=== PATIENT | female | born 1980 | race American Indian/Alaskan Native ===

== ENCOUNTER 2018-11-02 23:47 | Inpatient (IN) | payer MEDICAID ==
[2018-11-03] MEDS ORDERED: Morphine 4 mg/ml ISec IVP STA (00:40)
[2018-11-03] MEDS ORDERED: Sodium Chloride 0.9% 1,000 ML IV STA (00:41)
--- NOTE | 2018-11-03 00:41 | ED PDOC ---
Arrival/HPI - General Historian: Patient - History of Present Illness Narrative History of Present Illness (Text): 11/03/18 00:41 37 year old female, with no significant past medical history, who presents to the emergency department complaining of left leg pain that radiates to her left hip onset 4am yesterday. Patient reports she went to [facility] [place], where an ultrasound was done with no significant results. Patient reports inability to walk when pain is severe. She reports taking Aproxin with no improvement, prompting her to visit the ER today. similar symptoms 4 moths ago. She denies any fever, vomiting, nausea, chest pain, abdominal pain, urinary symptoms, bowel incontinence, or any other somatic complaints. PMD: Dr. Viramontes Time/Duration: 24 hours Symptom Onset: Gradual Symptom Course: Unchanged Activities at Onset: Light Context: Home <Sherlyn Arnold PA-C - Last Filed: 11/03/18 01:58> <Mohinder Romo - Last Filed: 11/03/18 05:55> - General Chief Complaint: Lower Extremity Problem/Injury Time Seen by Provider: 11/02/18 23:54 Past Medical History - Provider Review Nursing Documentation Reviewed: Yes - Infectious Disease Hx of Infectious Diseases: None - Cardiac Hx Cardiac Disorders: Yes Hx Hypertension: Yes - Pulmonary Hx Respiratory Disorders: Yes Hx Asthma: Yes - Neurological Hx Neurological Disorder: No - HEENT Hx HEENT Disorder: No - Renal Hx Renal Disorder: No - Endocrine/Metabolic Hx Endocrine Disorders: No - Hematological/Oncological Hx Blood Disorders: No - Integumentary Hx Dermatological Disorder: No - Musculoskeletal/Rheumatological Hx Musculoskeletal Disorders: Yes Other/Comment: lt hip replacement - Gastrointestinal Hx Gastrointestinal Disorders: No - Genitourinary/Gynecological Hx Genitourinary Disorders: No - Psychiatric Hx Psychophysiologic Disorder: No Hx Substance Use: No - Surgical History Hx Open Reduction Internal Fixation: Yes (hip) - Anesthesia Hx Anesthesia: Yes Hx Anesthesia Reactions: No Hx Malignant Hyperthermia: No <Sherlyn Arnold PA-C - Last Filed: 11/03/18 01:58> Family/Social History - Physician Review Nursing Documentation Reviewed: Yes Family/Social History: Unknown Family HX Smoking Status: Heavy Smoker > 10 Cigarettes Daily Hx Alcohol Use: Yes Frequency of alcohol use: Socially Hx Substance Use: No <Sherlyn Arnold PA-C - Last Filed: 11/03/18 01:58> Allergies/Home Meds <Sherlyn Arnold PA-C - Last Filed: 11/03/18 01:58> <Mohinder Romo - Last Filed: 11/03/18 05:55> Allergies/Adverse Reactions: Allergies No Known Allergies Allergy (Verified 11/03/18 00:39) Review of Systems - Physician Review All systems were reviewed & negative as marked: Yes - Review of Systems Constitutional: absent: Fevers Cardiovascular: absent: Chest Pain Gastrointestinal: absent: Abdominal Pain Genitourinary Female: absent: Urine Output Changes Musculoskeletal: absent: Back Pain, Neck Pain Neurological: absent: Headache <Sherlyn Arnold PA-C - Last Filed: 11/03/18 01:58> Physical Exam Vital Signs Reviewed: Yes Vital Signs Temp Pulse Resp BP Pulse Ox 11/03/18 00:18 98.1 F 73 13 146/85 97 Temperature: Afebrile Blood Pressure: Normal Pulse: Regular Respiratory Rate: Normal Appearance: Positive for: Well-Appearing, Non-Toxic, Comfortable Pain Distress: Mild Mental Status: Positive for: Alert and Oriented X 3 - Systems Exam Head: Present: Atraumatic, Normocephalic Pupils: Present: PERRL Extroacular Muscles: Present: EOMI Conjunctiva: Present: Normal Mouth: Present: Moist Mucous Membranes Neck: Present: Normal Range of Motion Respiratory/Chest: Present: Clear to Auscultation, Good Air Exchange. No: Respiratory Distress, Accessory Muscle Use Cardiovascular: Present: Regular Rate and Rhythm, Normal S1, S2. No: Murmurs Abdomen: No: Tenderness, Distention, Peritoneal Signs Back: Present: Normal Inspection Upper Extremity: Present: Normal Inspection. No: Cyanosis, Edema Lower Extremity: Present: Normal Inspection, Tenderness (Tenderness to left hip , posterior aspect of left knee). No: Edema Neurological: Present: GCS=15, Speech Normal Skin: Present: Warm, Dry, Normal Color. No: Rashes Psychiatric: Present: Alert, Oriented x 3, Normal Insight, Normal Concentration <Sherlyn Arnold PA-C - Last Filed: 11/03/18 01:58> Vital Signs Temp Pulse Resp BP Pulse Ox 11/03/18 00:18 98.1 F 73 13 146/85 97 <Mohinder Romo - Last Filed: 11/03/18 05:55> Medical Decision Making ED Course and Treatment: 11/03/18 00:39 Impression: 37 year old female presents to the emergency department complaining of pain in left leg and hip onset 4am yesterday. Differential Diagnosis included but are not limited to: Plan: -- EKG -- Labs -- Morphine -- Valium -- Zofran -- X-ray left knee -- X-ray Hip -- Ultrasund lower extremity -- Reassess and disposition Prior Visits: Notes and results from previous visits were reviewed. Progress Notes: <Sherlyn Arnold PA-C - Last Filed: 11/03/18 01:58> ED Course and Treatment: 11/03/18 04:40 Venous doppler U/S LL Extremity- No DVT 11/03/18 05:24 X-ray left knee, X-ray Hip reviewed, shows: No acute processes. 11/03/18 05:50 Attempt at having patient ambulate unsuccessful.Still complains of persistent symptoms/pain and locking sensation when attempt made/Will place on observation,hospitalist service/orthopedic consult needed/Case was discussed w whit Coleman and biomedical engineering aide.Accepted to the hospitalist jackelyn. - RAD Interpretation Radiology Orders: 11/03/18 00:40 HIP MIN 2V W/ PELVIS LT [RAD] Stat KNEE LEFT 2 VIEWS (AP & LAT) [RAD] Stat DUPLEX LOWER EXTRM VEIN LEFT [US] Stat [employer] Apprentice: ED Physician - Medication Orders Current Medication Orders: Sodium Chloride (Sodium Chloride 0.9%) 1,000 mls @ 500 mls/hr IV .Q2H STA Stop: 11/03/18 02:40 Discontinued Medications Diazepam (Valium) 5 mg PO ONCE ONE; Protocol Stop: 11/03/18 00:43 Last Admin: 11/03/18 01:15 Dose: 5 mg Morphine Sulfate (Morphine) 4 mg IVP STAT STA Stop: 11/03/18 00:41 Ondansetron HCl (Zofran Inj) 4 mg IVP STAT STA Stop: 11/03/18 00:41 <Mohinder Romo - Last Filed: 11/03/18 05:55> - PA / TEMPORARY RECEPTIONIST / Resident Statement TYLOR has reviewed & agrees with the documentation as recorded. TYLOR has examined the patient and agrees with the treatment plan. - Scribe Statement The provider has reviewed the documentation as recorded by the Carli Red All medical record entries made by the Carli were at my direction and personally dictated by me. I have reviewed the chart and agree that the record accurately reflects my personal performance of the history, physical exam, medical decision making, and the department course for this patient. I have also personally directed, reviewed, and agree with the discharge instructions and disposition. <Sherlyn Arnold PA-C - Last Filed: 11/03/18 01:58> - PA / TEMPORARY RECEPTIONIST / Resident Statement TYLOR has reviewed & agrees with the documentation as recorded. <Mohinder Romo - Last Filed: 11/03/18 05:55> Disposition/Present on Arrival - Present on Arrival History of DVT/PE: No History of Uncontrolled Diabetes: No Urinary Catheter: No History of Decub. Ulcer: No History Surgical Site Infection Following: None <Sherlyn Arnold PA-C - Last Filed: 11/03/18 01:58> - Present on Arrival Any Indicators Present on Arrival: No History of DVT/PE: No History of Uncontrolled Diabetes: No Urinary Catheter: No History of Decub. Ulcer: No History Surgical Site Infection Following: None - Disposition Have Diagnosis and Disposition been Completed?: Yes Disposition Time: 05:48 <Mohinder Romo - Last Filed: 11/03/18 05:55> - Disposition Diagnosis: Hip pain, left, Intractable pain, Inability to ambulate due to hip Disposition: HOSPITALIZED Patient Problems: Current Active Problems Problem Status Onset Hip pain, left Acute Inability to ambulate due to hip Acute Intractable pain Acute Condition: STABLE Referrals: Anton Viramontes MD [Primary Care Provider] - Follow up with primary Forms: Gridsum (Chinese)
[2018-11-03 01:35] LABS: BASO # 0.04 K/mm3 (0.0-2.0); BASO % 0.3 % (0.0-3.0); EOS # 0.2 (0.0-0.7); EOS % 1.5 % (1.5-5.0); HEMOGLOBIN 12.5 g/dL (12.0-16.0); LYMPH # 1.8 (1.2-3.4); MEAN CELL VOLUME 77.9 fl (80.0-105.0); MEAN CORPUSCULAR HEMOGLOBIN 26.3 pg (25.0-35.0); MEAN CORPUSCULAR HGB CONC 33.7 g/dl (31.0-37.0); MEAN PLATELET VOLUME 8.8 fl (7.0-11.0); MONO # 0.4 (0.1-0.6); MONO % 2.9 % (1.0-6.0); RBC 4.76 10^6/uL (3.5-6.1); RED CELL DISTRIBUTION WIDTH 16.1 % (11.5-14.5); WHITE BLOOD COUNT 13.5 10^3/uL (4.5-11.0)
[2018-11-03 02:27] LABS: ALBUMIN 3.5 g/dL (3.0-4.8); BLOOD UREA NITROGEN 14 mg/dL (7-21); CALCIUM 8.1 mg/dL (8.4-10.5); GFR NON-AFRICAN AMERICAN > 60
[2018-11-03 03:02] LABS: ALT/SGPT 11 U/L (7-56); AST/SGOT 35 U/L (14-36)
[2018-11-03 07:57] VITALS: BMI 41.0
--- NOTE | 2018-11-03 09:10 | CP.PCM.HP ---
<Brant Cassidy - Last Filed: 11/03/18 13:26> History of Present Illness - History of Present Illness History of Present Illness: Brant Cassidy DO, PGY-1 Hospitalist Admission History and Physical for Dr. 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 She describes the pain as a squeezing, tingling type sensation that starts at her L hip and radiates down her entire posterior leg to her foot. She rates the pain as 10/10 with movement. She states she has tried naproxen for the pain but had no improvement. She denies recent strenuous activity or other inciting events. She was worked up with xrays and LLE doppler US in ED which were all negative for concerning findings. In ED, patient attempted to ambulate on four different occasions but was unable to. Aside from the L hip pain, she denies fever/chills, CP, SOB, abd pain/nausea/vomiting, ALARCON, changes in vision, or urinary complaints. 12-point ROS was otherwise negative except as specified above. PMD: Dr. 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 and L SHARDA in early 20s), HTN (not on meds), and asthma Past Surgical History: b/l hip screw placement for probable SCFE at age 12, Allergies: NKA Home medications: albuterol inhaler PRN Family History: mother and father both still living, father has HTN, mother has PAD Social History: admits to light smoking less than 1/2 PPD for the past 10 years, reports occasional EtOH use, denies other illicit drug use Present on Admission - Present on Admission Any Indicators Present on Admission: No History of DVT/PE: No History of Uncontrolled Diabetes: No Urinary Catheter: No Decubitus Ulcer Present: No Past Patient History - Infectious Disease Hx of Infectious Diseases: None - Past Social History Smoking Status: Never Smoked - CARDIAC Hx Cardiac Disorders: Yes Hx Hypertension: Yes - PULMONARY Hx Respiratory Disorders: Yes Hx Asthma: Yes - NEUROLOGICAL Hx Neurological Disorder: No - HEENT Hx HEENT Problems: No - RENAL Hx Chronic Kidney Disease: No - ENDOCRINE/METABOLIC Hx Endocrine Disorders: No - HEMATOLOGICAL/ONCOLOGICAL Hx Blood Disorders: No - INTEGUMENTARY Hx Dermatological Problems: No - MUSCULOSKELETAL/RHEUMATOLOGICAL Hx Musculoskeletal Disorders: Yes Hx Falls: Yes Other/Comment: lt hip replacement - GASTROINTESTINAL Hx Gastrointestinal Disorders: No - GENITOURINARY/GYNECOLOGICAL Hx Genitourinary Disorders: No - PSYCHIATRIC Hx Psychophysiologic Disorder: No - SURGICAL HISTORY Hx Surgeries: Yes - ANESTHESIA Hx Anesthesia: Yes Hx Anesthesia Reactions: No Hx Malignant Hyperthermia: No Meds Allergies/Adverse Reactions: Allergies Allergy/AdvReac Type Severity Reaction Status Date / Time No Known Allergies Allergy Verified 11/03/18 00:39 Physical Exam - Constitutional Appears: Non-toxic, No Acute Distress, Other (resting comfortably in bed, no acute respiratory distress, but appears uncomfortable and in significant pain with even slight movement) - Head Exam Head Exam: ATRAUMATIC, NORMOCEPHALIC - Eye Exam Eye Exam: EOMI, PERRL - ENT Exam ENT Exam: Mucous Membranes Moist - Neck Exam Neck exam: Positive for: Full Rom. Negative for: Lymphadenopathy, Thyromegaly - Respiratory Exam Respiratory Exam: Clear to Auscultation Bilateral, NORMAL BREATHING PATTERN. absent: Accessory Muscle Use, Rales, Rhonchi, Wheezes, Respiratory Distress - Cardiovascular Exam Cardiovascular Exam: REGULAR RHYTHM, RRR, +S1, +S2. absent: Diastolic murmur, Gallop, Rubs, Systolic Murmur - GI/Abdominal Exam GI & Abdominal Exam: Normal Bowel Sounds, Soft. absent: Guarding, Rebound, Tenderness - Extremities Exam Extremities exam: Positive for: tenderness (L hamstring and L hip tenderness). Negative for: calf tenderness, pedal edema Additional comments: positive straight leg test on R, significant tenderness to palpation over L hip, no calf tenderness to palpation - Back Exam Back exam: absent: paraspinal tenderness, rash noted, vertebral tenderness - Neurological Exam Neurological exam: Alert, Oriented x3 - Psychiatric Exam Psychiatric exam: Normal Affect, Normal Mood - Skin Skin Exam: Dry, Intact, Warm Results - Vital Signs Recent Vital Signs: Last Vital Signs Temp 98.2 F 11/03/18 08:46 Pulse 53 L 11/03/18 08:46 Resp 18 11/03/18 08:46 BP 165/80 H 11/03/18 08:46 Pulse Ox 96 11/03/18 08:46 - Labs Result Diagrams: 11/03/18 01:22 11/03/18 01:55 Labs: Laboratory Results - last 24 hr 11/03/18 11/03/18 11/03/18 01:22 01:22 01:55 WBC 13.5 H RBC 4.76 Hgb 12.5 Hct 37.1 MCV 77.9 L MCH 26.3 MCHC 33.7 RDW 16.1 H Plt Count 286 MPV 8.8 Neut % (Auto) 82.3 H Lymph % (Auto) 13.0 L Smyth % (Auto) 2.9 Eos % (Auto) 1.5 Baso % (Auto) 0.3 Lymph # (Auto) 1.8 Smyth # (Auto) 0.4 Eos # (Auto) 0.2 Baso # (Auto) 0.04 Absolute Neuts (auto) 11.07 H Sodium 139 Potassium 4.3 Chloride 105 Carbon Dioxide 28 Anion Gap 10 BUN 14 Creatinine 0.7 Est GFR ( Amer) > 60 Est GFR (Non-Af Amer) > 60 Random Glucose 114 H Calcium 8.1 L Magnesium 2.1 Total Bilirubin 0.3 AST 35 ALT 11 Alkaline Phosphatase 71 Total Protein 7.1 Albumin 3.5 Globulin 3.6 Albumin/Globulin Ratio 1.0 L Beta HCG, Quant < 2.39 Assessment & Plan - Assessment and Plan (Free Text) Assessment: 37 yo F with PMH of 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 Plan: L Hip Pain Suspect pain is most likely related to sciatica, given radiation to LLE, however patient denies any back pain Will get CT L hip and CT lumbosacral spine Given patient's history of L SHARDA, will consult ortho for additional recs Flexeril 5 mg q8h and motrin PRN for pain PT evaluate and treat Appropriate DVT ppx ordered Asthma Patient currently not complaining of any SOB Only uses albuterol inhaler PRN Order placed for duo-neb PRN SOB HTN Patient admits to hx of HTN but is not currently on any meds Will monitor BP throughout admission, recommend outpatient f/u if hypertensive DVT/GI PPX: Lovenox/GI ppx not indicated Full Code HHD Monitor on med/surg Patient seen, examined with, and plan discussed with my attending Dr. Jeff Cassidy D.O. IM Resident PGY-1 Pager: [phone] <Radha Avalos R - Last Filed: 11/04/18 18:27> Results - Vital Signs Recent Vital Signs: Last Vital Signs Temp 98.0 F 11/04/18 06:00 Pulse 62 11/04/18 06:00 Resp 18 11/04/18 06:00 BP 129/84 11/04/18 06:00 Pulse Ox 97 11/04/18 06:00 - Labs Result Diagrams: 11/04/18 06:10 11/04/18 06:10 Labs: Laboratory Results - last 24 hr 11/04/18 11/04/18 06:10 06:10 WBC 12.6 H RBC 4.26 Hgb 11.2 L Hct 33.6 L MCV 78.9 L MCH 26.3 MCHC 33.3 RDW 16.6 H Plt Count 259 MPV 9.1 Neut % (Auto) 54.8 Lymph % (Auto) 35.2 H Smyth % (Auto) 6.5 H Eos % (Auto) 2.9 Baso % (Auto) 0.6 Lymph # (Auto) 4.4 H Smyth # (Auto) 0.8 H Eos # (Auto) 0.4 Baso # (Auto) 0.07 Absolute Neuts (auto) 6.87 H Sodium 139 Potassium 4.4 Chloride 107 Carbon Dioxide 31 Anion Gap 6 L BUN 16 Creatinine 0.9 Est GFR ( Amer) > 60 Est GFR (Non-Af Amer) > 60 Random Glucose 95 Calcium 7.9 L Phosphorus 3.9 Magnesium 2.0 Total Bilirubin 0.1 L AST 35 ALT 14 Alkaline Phosphatase 62 Total Protein 6.0 Albumin 3.0 Globulin 3.0 Albumin/Globulin Ratio 1.0 L Attending/Attestation - Attestation I have personally seen and examined this patient.: Yes I have fully participated in the care of the patient.: Yes Notes (Text): Patient seen and examined by me with resident at approximately 11:20AM on 11/03/18. Case including HPI, physical exam, and assessment and plan discussed with resident. Agree with above with following additions/corrections. Patient is a 37-year-old female with past medical history significant for likely bilateral SCFE, hypertension not any medications, and mild intermittent asthma that presented to the emergency room with intractable left lower extremity pain. Patient states that this has been going on for approximately 7 months. She states that initially the pain would comment and was not as severe. She states that she normally walks around a lot and works as a [employer]. She states that she was taking mobic at home for the pain with little relief. She states that the severe pain started around 4 AM. She states that the pain is a squeezing pain. There is also tingling and numbness. Pain starts at the back of her thigh and goes down to her foot. Patient states that she is unable to walk without pain. She denies any falls. No trauma to the area. No back pain. Feels that the pain is coming from her left hip replacement. She denies any chest pain or shortness of breath. No fevers or chills. No nausea, vomiting, or abdominal pain. No headaches or dizziness. No dysuria. No diarrhea or constipation. No loss of bowel or urine. 12 point review of systems reviewed by me. Please see above HPI. All other systems negative. Physical exam: General: Awake and alert lying in bed in no acute distress HEENT: Normocephalic, atraumatic. Extraocular muscles intact. Pupils equal and reactive, no scleral icterus. Oropharynx is pink and moist. No pharyngeal erythema or exudate appreciated. Neck is supple. Cardiovascular: Normal rhythm. Normal S1 and S2. No murmus, rubs, or gallops appreciated Pulmonary: Normal respiratory effort. No rhonci, rales, or wheezing appreciated. Gastrointestinal: Soft, nondistended. Nontender. Positive bowel sounds all 4 quadrants. No guarding. Obese abdomen. Musculoskeletal: Moves all extremities. Positive decreased range of motion of entire left leg. Positive posterior leg tenderness. No lumbosacral spine tenderness. No edema appreciated. Central nervous system: AAO x3. CN2-12 grossly intact. Decreased sensation left lower extremity Dermatologic: Skin warm and dry. 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 1. Intractable left leg/hip pain. Left lower extremitty radiculopathy. We'll order CT of left hip and lumbosacral spine. Orthopedics consulted, pending recommendations. Left pelvis and hip x-ray per radiologist shows no acute findings. Left knee x-ray per radiologist shows normal radiographs of the left knee. Left lower extremity venous Doppler per radiologist negative for DVT. PT eval and treat. Started on Flexeril as needed. 2. History of hypertension. Not on any medications at home. We'll monitor for now. 3. Mild intermittent asthma. No acute issues. Monitor for now. Case was discussed in detail with the patient regarding current diagnosis, study results, and treatment plan. All questions answered.
--- NOTE | 2018-11-03 09:34 | RAD ---
Date of service: 11/03/2018 PROCEDURE: Left Knee Radiographs. HISTORY: Pain. COMPARISON: None. TECHNIQUE: 2 views obtained. FINDINGS: BONES: Normal. No fracture. JOINTS: Normal. No osteoarthritis. JOINT EFFUSION: None. OTHER FINDINGS: None. IMPRESSION: Normal radiographs of the left knee.
--- NOTE | 2018-11-03 09:35 | RAD ---
Date of service: 11/03/2018 PROCEDURE: Pelvis and left hip HISTORY: pain COMPARISON: TECHNIQUE: Three views FINDINGS: There is a left hip prosthesis in satisfactory alignment. There is no fracture or loosening. A single screw can be seen through the right hip. There is mild joint space narrowing. The pelvis is intact IMPRESSION: No acute findings
--- NOTE | 2018-11-03 09:51 | US ---
PROCEDURE: Left lower extremity venous US HISTORY: Leg pain and swelling. Evaluate for DVT. PHYSICIAN(S): Denis Diop MD. TECHNIQUE: Duplex sonography and color-flow Doppler with graded compression were used to evaluate the deep venous system of the left lower extremity. FINDINGS: The visualized deep venous system of the left lower extremity is sonographically normal and compressible. Normal wave forms and augmentation are seen. There is no sonographic evidence for deep venous thrombosis in the visualized segments of the left lower extremity. IMPRESSION: 1. No sonographic evidence for deep venous thrombosis in the visualized segments of the left lower extremity.
--- NOTE | 2018-11-03 14:01 | CT ---
Date of service: 11/03/2018 PROCEDURE: CT Lumbar Spine without contrast HISTORY: sciatica sx's, please include lumbosacral spine COMPARISON: None available. TECHNIQUE: Axial computed tomography images were obtained of the lumbar spine without the use of intravenous contrast. Coronal and sagittal reformatted images were created and reviewed. Radiation dose: Total exam DLP = 1353.42 mGy-cm. This CT exam was performed using one or more of the following dose reduction techniques: Automated exposure control, adjustment of the mA and/or kV according to patient size, and/or use of iterative reconstruction technique. FINDINGS: VERTEBRAE: Unremarkable. No fracture. Normal alignment. DISCS/SPINAL CANAL/NEURAL FORAMINA: L1-2: Unremarkable. L2-3: Unremarkable. L3-4: Unremarkable. L4-5: Unremarkable. L5-S1: There is a large asymmetric disc bulge or broad-based protrusion on the left extending into the neural foramen. This is best seen on axial image 71 series 3. There is also a left paracentral osteophyte PARASPINAL SOFT TISSUES: Unremarkable. OTHER FINDINGS: None. IMPRESSION: There is a large asymmetric disc bulge or broad-based protrusion at L5-S1 on the left extending into the neural foramen.
--- NOTE | 2018-11-03 14:28 | CT ---
Date of service: 11/03/2018 PROCEDURE: CT of the left hip without contrast HISTORY: hx L hip arthroplasty, L hip pain COMPARISON: TECHNIQUE: Radiation dose: Total exam DLP = 1084 mGy-cm. This CT exam was performed using one or more of the following dose reduction techniques: Automated exposure control, adjustment of the mA and/or kV according to patient size, and/or use of iterative reconstruction technique. FINDINGS: There is a left hip replacement in normal alignment. There is no fracture or loosening around the prosthesis. There is no soft tissue injury. IMPRESSION: Negative study
[2018-11-04 06:54] LABS: ALT/SGPT 14 U/L (7-56); AST/SGOT 35 U/L (14-36); BLOOD UREA NITROGEN 16 mg/dL (7-21); CALCIUM 7.9 mg/dL (8.4-10.5); GFR NON-AFRICAN AMERICAN > 60
[2018-11-04 06:56] LABS: BASO # 0.07 K/mm3 (0.0-2.0); BASO % 0.6 % (0.0-3.0); EOS # 0.4 (0.0-0.7); EOS % 2.9 % (1.5-5.0); HEMOGLOBIN 11.2 g/dL (12.0-16.0); LYMPH # 4.4 (1.2-3.4); LYMPH % 35.2 % (22.0-35.0); MEAN CELL VOLUME 78.9 fl (80.0-105.0); MEAN CORPUSCULAR HEMOGLOBIN 26.3 pg (25.0-35.0); MEAN CORPUSCULAR HGB CONC 33.3 g/dl (31.0-37.0); MEAN PLATELET VOLUME 9.1 fl (7.0-11.0); MONO # 0.8 (0.1-0.6); MONO % 6.5 % (1.0-6.0); RBC 4.26 10^6/uL (3.5-6.1); RED CELL DISTRIBUTION WIDTH 16.6 % (11.5-14.5); WHITE BLOOD COUNT 12.6 10^3/uL (4.5-11.0)
[2018-11-04] MEDS: Enoxaparin 40 mg Syringe SC SCH ×2 (10:04→10:06)
--- NOTE | 2018-11-04 14:31 | CP.PCM.PN ---
<Brant Cassidy - Last Filed: 11/04/18 14:28> Subjective - Date & Time of Evaluation Date of Evaluation: 11/04/18 Time of Evaluation: 07:00 - Subjective Subjective: Brant Cassidy DO, PGY-1 Hospitalist Progress Note for Dr. Jeff Avalos Patient was seen and examined at bedside this AM. She reports some improvement in the pain with flexeril and consistent ibuprofen overnight. She was able to ambulate to bathroom but with significant pain. She states it is especially difficult to get out of bed without severe pain. She otherwise offers no additional complaints an denies fever/chills, CP, SOB, abd pain/nausea/vomiting, or urinary complaints. Objective - Vital Signs/Intake and Output Vital Signs (last 24 hours): Temp Pulse Resp BP Pulse Ox 98.0 F 62 18 129/84 97 11/04/18 06:00 11/04/18 06:00 11/04/18 06:00 11/04/18 06:00 11/04/18 06:00 Intake and Output: 11/04/18 11/04/18 06:59 18:59 Intake Total 1200 Balance 1200 - Medications Medications: Current Medications Cyclobenzaprine HCl (Flexeril) 5 mg PO Q8H PRN PRN Reason: Pain, moderate (4-7) Last Admin: 11/04/18 10:03 Dose: 5 mg Enoxaparin Sodium (Lovenox) 40 mg SC DAILY FREYA; Protocol Last Admin: 11/04/18 10:06 Dose: Not Given Ibuprofen (Motrin Tab) 400 mg PO Q6H PRN PRN Reason: Pain, moderate (4-7) Last Admin: 11/03/18 22:23 Dose: 400 mg Tramadol HCl (Ultram) 50 mg PO Q8 PRN PRN Reason: Pain, severe (8-10) Last Admin: 11/04/18 10:03 Dose: 50 mg - Labs Labs: 11/04/18 06:10 11/04/18 06:10 - Constitutional Appears: Non-toxic, No Acute Distress - Head Exam Head Exam: ATRAUMATIC, NORMOCEPHALIC - Eye Exam Eye Exam: EOMI, PERRL - ENT Exam ENT Exam: Mucous Membranes Moist - Neck Exam Neck Exam: Full ROM, Normal Inspection - Respiratory Exam Respiratory Exam: Clear to Ausculation Bilateral, NORMAL BREATHING PATTERN. a bsent: Accessory Muscle Use, Rales, Rhonchi, Wheezes, Respiratory Distress - Cardiovascular Exam Cardiovascular Exam: REGULAR RHYTHM, RRR, +S1, +S2. absent: Gallop, Rubs, Murmur - GI/Abdominal Exam GI & Abdominal Exam: Soft, Normal Bowel Sounds. absent: Guarding, Tenderness - Extremities Exam Extremities Exam: Tenderness (L hamstring and L hip tenderness). absent: Calf Tenderness, Pedal Edema Additional comments: positive straight leg test on R, significant tenderness to palpation over L hip, no calf tenderness to palpation - Back Exam Back Exam: absent: paraspinal tenderness, vertebral tenderness - Neurological Exam Neurological Exam: Alert, Awake, Oriented x3. 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 [address] lumbar spine completed yesterday which showed herniated disc at L5-S1. She is s/p first PT treatment today. Plan: L Hip Pain Suspect pain is most likely related to sciatica, given radiation to LLE, however patient denies any back pain CT lumbosacral spine completed, showed herniated disc at L5-S1 S/p first PT evaluation/treatment today, recommend KATE Case discussed with ortho, who recommend neurosurgical consult May continue flexeril 5 mg q8h and tramadol PRN pain Ortho, neurosurgery following, all recs appreciated Asthma Continues to have no SOB Continue Duo-neb PRN SOB HTN Has intermittent episodes of HTN but difficult to distinguish from primary HTN given patient's pain Recommend outpatient f/u and treatment as needed DVT/GI PPX: Lovenox/GI ppx not indicated Full Code HHD Monitor on med/surg Patient seen, examined with, and plan discussed with my attending Dr. Jeff Cassidy D.O. IM Resident PGY-1 Pager: [phone] <Avalos,Radha R - Last Filed: 11/06/18 09:08> Objective - Vital Signs/Intake and Output Vital Signs (last 24 hours): Temp Pulse Resp BP Pulse Ox 98.4 F 57 L 18 148/92 H 98 11/05/18 17:04 11/05/18 17:04 11/05/18 17:04 11/05/18 17:04 11/05/18 17:04 Intake and Output: 11/06/18 11/06/18 06:59 18:59 Intake Total 240 Balance 240 - Medications Medications: Current Medications Cyclobenzaprine HCl (Flexeril) 5 mg PO Q8H PRN PRN Reason: Pain, moderate (4-7) Last Admin: 11/06/18 01:32 Dose: 5 mg Enoxaparin Sodium (Lovenox) 40 mg SC DAILY FREYA; Protocol Last Admin: 11/05/18 09:11 Dose: 40 mg Ibuprofen (Motrin Tab) 400 mg PO Q6H PRN PRN Reason: Pain, moderate (4-7) Last Admin: 11/06/18 06:20 Dose: 400 mg Tramadol HCl (Ultram) 50 mg PO Q8 PRN PRN Reason: Pain, severe (8-10) Last Admin: 11/06/18 05:05 Dose: 50 mg - Labs Labs: 11/06/18 06:35 11/06/18 06:35 Attending/Attestation - Attestation I have personally seen and examined this patient.: Yes I have fully participated in the care of the patient.: Yes I have reviewed all pertinent clinical information, including history, physical exam and plan: Yes Notes (Text): Patient seen and examined by me with resident at approximately 10:20AM on 11/04/18. Case including HPI, physical exam, and assessment and plan discussed with resident. Agree with above with following additions/corrections. Patient is a 37-year-old female with past medical history significant for likely bilateral SCFE, hypertension not any medications, and mild intermittent asthma that presented to the emergency room with intractable left lower extremity pain. Patient states she is feeling ok. Still with left posterior leg "pain, tightness, and numbness." Patient still with difficulty ambulating. Patient denies any chest pain or shortness of breath. No headaches or dizziness. No fevers or chills. No nausea, vomiting, or abdominal pain. No dysuria. Physical exam: General: Awake and alert lying in bed in no acute distress HEENT: Normocephalic, atraumatic. Extraocular muscles intact. Pupils equal and reactive, no scleral icterus. Oropharynx is pink and moist. No pharyngeal erythema or exudate appreciated. Neck is supple. Cardiovascular: Normal rhythm. Normal S1 and S2. No murmus, rubs, or gallops appreciated Pulmonary: Normal respiratory effort. No rhonci, rales, or wheezing appreciated. Gastrointestinal: Soft, nondistended. Nontender. Positive bowel sounds all 4 quadrants. No guarding. Obese abdomen. Musculoskeletal: Moves all extremities. Positive decreased range of motion of entire left leg. Positive posterior leg tenderness. No lumbosacral spine tend erness. No edema appreciated. Central nervous system: AAO x3. CN2-12 grossly intact. Decreased sensation left lower extremity Dermatologic: Skin warm and dry. 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 1. Intractable left leg/hip pain. Left lower extremity radiculopathy. Left hip CT per radiologist showed negative study. Lumbar spine CT per radiologist showed L5-S1 with a large asymmetric disc bulge or broad based protrusion on the left extending into the neural foramen, there is also left paracentral osteophyte. MRI lumbar spine pending. Orthopedics recommendations appreciated. Neurosurgery consulted, follow-up recommendations. Continue Flexeril and tramadol for pain. Left pelvis and hip x-ray per radiologist shows no acute findings. Left knee x- ray per radiologist shows normal radiographs of the left knee. Left lower extremity venous Doppler per radiologist negative for DVT. PT recommending subacute rehabilitation 2. History of hypertension. Not on any medications at home. Continue to monitor for now. 3. Mild intermittent asthma. No acute issues. Monitor for now. Case was discussed in detail with the patient regarding current diagnosis, study results, and treatment plan. All questions answered.
--- NOTE | 2018-11-04 15:42 | CP.PCM.CON ---
History of Present Illness - History of Present Illness History of Present Illness: Orthopedic consultation Dr. Amador 37F complains of shooting and cramping pain in left buttock and down left leg x 7 months. She says she saw her PMD before who gave her NSAIDs but it didn't really help. She also complains of tingling down her left leg and it is numb and tingling on back of left thigh often. She says at 4am prior to admission that that pain was so severe it woke and kept her up, and this was the worst it has ever been. No change in bowel/bladder habits. No trauma or falls. Patient had left THR in 2006 in [place]. She did not have any complications after that surgery. She has never seen refrigeration specialist and denies any injection or PT for her back. Denies fever/chills/CP/SOB/dizziness/palp/n/v PSH: as above right hip pinning Review of Systems - Review of Systems All systems: reviewed and no additional remarkable complaints except - Constitutional Constitutional: As Per HPI - Cardiovascular Cardiovascular: As Per HPI - Respiratory Respiratory: As Per HPI - Gastrointestinal Gastrointestinal: As Per HPI - Musculoskeletal Musculoskeletal: As Per HPI - Integumentary Integumentary: As Per HPI - Neurological Neurological: As Per HPI - Hematologic/Lymphatic Hematologic: absent: As Per HPI, Easy Bleeding, Easy Bruising, Lymphadenopathy, Other (denies sickle cell) Past Patient History - Infectious Disease Hx of Infectious Diseases: None - Past Medical History & Family History Past Medical History?: Yes Past Family History: Reviewed and not pertinent - Past Social History Smoking Status: Never Smoked - CARDIAC Hx Cardiac Disorders: Yes Hx Hypertension: Yes - PULMONARY Hx Respiratory Disorders: Yes Hx Asthma: Yes - NEUROLOGICAL Hx Neurological Disorder: No - HEENT Hx HEENT Problems: No - RENAL Hx Chronic Kidney Disease: No - ENDOCRINE/METABOLIC Hx Endocrine Disorders: No - HEMATOLOGICAL/ONCOLOGICAL Hx Blood Disorders: No - INTEGUMENTARY Hx Dermatological Problems: No - MUSCULOSKELETAL/RHEUMATOLOGICAL Hx Musculoskeletal Disorders: Yes Hx Falls: Yes Other/Comment: lt hip replacement - GASTROINTESTINAL Hx Gastrointestinal Disorders: No - GENITOURINARY/GYNECOLOGICAL Hx Genitourinary Disorders: No - PSYCHIATRIC Hx Psychophysiologic Disorder: No - SURGICAL HISTORY Hx Surgeries: Yes - ANESTHESIA Hx Anesthesia: Yes Hx Anesthesia Reactions: No Hx Malignant Hyperthermia: No Meds Allergies/Adverse Reactions: Allergies Allergy/AdvReac Type Severity Reaction Status Date / Time No Known Allergies Allergy Verified 11/03/18 00:39 - Medications Medications: Current Medications Cyclobenzaprine HCl (Flexeril) 5 mg PO Q8H PRN PRN Reason: Pain, moderate (4-7) Last Admin: 11/04/18 10:03 Dose: 5 mg Enoxaparin Sodium (Lovenox) 40 mg SC DAILY FREYA; Protocol Last Admin: 11/04/18 10:06 Dose: Not Given Ibuprofen (Motrin Tab) 400 mg PO Q6H PRN PRN Reason: Pain, moderate (4-7) Last Admin: 11/03/18 22:23 Dose: 400 mg Tramadol HCl (Ultram) 50 mg PO Q8 PRN PRN Reason: Pain, severe (8-10) Last Admin: 11/04/18 10:03 Dose: 50 mg Physical Exam - Constitutional Appears: Well, No Acute Distress Additional comments: during exam noted painful distress - Head Exam Head Exam: ATRAUMATIC - Neck Exam Neck exam: Positive for: Full Rom, Normal Inspection - Respiratory Exam Respiratory Exam: NORMAL BREATHING PATTERN - Cardiovascular Exam Additional comments: +DP/PT pulses - Back Exam Back exam: NORMAL INSPECTION, paraspinal tenderness - Neurological Exam Neurological exam: Alert, Oriented x3 - Expanded Neurological Exam Expanded Sensory exam: Lower Extremity Light Touch: Abnormal Left (admits decreased sensation to lateral thigh and lateral lower leg) Neuro motor strength exam: Left Lower Extremity: 5 (5/5 ankle DF, 3+/5 great toe extension, 4/5 DF of ankle, 5/5 knee extension), Right Lower Extremity: 5 (5/5 ankle DF/PF/great toe/knee ext/flex) - Psychiatric Exam Psychiatric exam: Normal Affect, Normal Mood - Skin Skin Exam: Dry, Intact, Normal Color, Warm Results - Vital Signs Recent Vital Signs: Last Vital Signs Temp 98.0 F 11/04/18 06:00 Pulse 62 11/04/18 06:00 Resp 18 11/04/18 06:00 BP 129/84 11/04/18 06:00 Pulse Ox 97 11/04/18 06:00 - Labs Result Diagrams: 11/04/18 06:10 11/04/18 06:10 Labs: Laboratory Results - last 24 hr 11/04/18 11/04/18 06:10 06:10 WBC 12.6 H RBC 4.26 Hgb 11.2 L Hct 33.6 L MCV 78.9 L MCH 26.3 MCHC 33.3 RDW 16.6 H Plt Count 259 MPV 9.1 Neut % (Auto) 54.8 Lymph % (Auto) 35.2 H Sac % (Auto) 6.5 H Eos % (Auto) 2.9 Baso % (Auto) 0.6 Lymph # (Auto) 4.4 H Sac # (Auto) 0.8 H Eos # (Auto) 0.4 Baso # (Auto) 0.07 Absolute Neuts (auto) 6.87 H Sodium 139 Potassium 4.4 Chloride 107 Carbon Dioxide 31 Anion Gap 6 L BUN 16 Creatinine 0.9 Est GFR ( Amer) > 60 Est GFR (Non-Af Amer) > 60 Random Glucose 95 Calcium 7.9 L Phosphorus 3.9 Magnesium 2.0 Total Bilirubin 0.1 L AST 35 ALT 14 Alkaline Phosphatase 62 Total Protein 6.0 Albumin 3.0 Globulin 3.0 Albumin/Globulin Ratio 1.0 L - Impressions Impression: atient Name / ID : ODALIS NOLAN / [id number] Exam Date : 11/03/2018 13:37:07 ( Approved ) Study Comment : Sex / Age : F / 37Y Creator : Jose R Underwood MD Dictator : Jose R Underwood MD Social Professionals : Transit Mixer Operator : Jose R Underwood MD Approver2 : Report Date : 11/03/2018 13:55:51 My Comment : Date of service: 11/03/2018 PROCEDURE: CT Lumbar Spine without contrast HISTORY: sciatica sx's, please include lumbosacral spine COMPARISON: None available. TECHNIQUE: Axial computed tomography images were obtained of the lumbar spine without the use of intravenous contrast. Coronal and sagittal reformatted images were created and reviewed. Radiation dose: Total exam DLP = 1353.42 mGy-cm. This CT exam was performed using one or more of the following dose reduction techniques: Automated exposure control, adjustment of the mA and/or kV according to patient size, and/or use of iterative reconstruction technique. FINDINGS: VERTEBRAE: Unremarkable. No fracture. Normal alignment. DISCS/SPINAL CANAL/NEURAL FORAMINA: L1-2: Unremarkable. L2-3: Unremarkable. L3-4: Unremarkable. L4-5: Unremarkable. L5-S1: There is a large asymmetric disc bulge or broad-based protrusion on the left extending into the neural foramen. This is best seen on axial image 71 series 3. There is also a left paracentral osteophyte PARASPINAL SOFT TISSUES: Unremarkable. OTHER FINDINGS: None. IMPRESSION: There is a large asymmetric disc bulge or broad-based protrusion at L5-S1 on the left extending into the neural foramen. atient Name / ID : ODALIS NOLAN / [id number] Exam Date : 11/03/2018 13:40:00 ( Approved ) Study Comment : Sex / Age : F / 37Y Creator : Jose R Underwood MD Dictator : Jose R Underwood MD Social [employer]essionals : Transit Mixer Operator : Jose R Underwood MD Approver2 : Report Date : 11/03/2018 14:23:06 My Comment : Date of service: 11/03/2018 PROCEDURE: CT of the left hip without contrast HISTORY: hx L hip arthroplasty, L hip pain COMPARISON: TECHNIQUE: Radiation dose: Total exam DLP = 1084 mGy-cm. This CT exam was performed using one or more of the following dose reduction techniques: Automated exposure control, adjustment of the mA and/or kV according to patient size, and/or use of iterative reconstruction technique. FINDINGS: There is a left hip replacement in normal alignment. There is no fracture or loosening around the prosthesis. There is no soft tissue injury. IMPRESSION: Negative study atient Name / ID : ODALIS NOLAN / [id number] Exam Date : 11/03/2018 04:56:41 ( Approved ) Study Comment : Sex / Age : F / 37Y Creator : Jose R Underwood MD Dictator : Jose R Underwood MD [employer]essionals : Transit Mixer Operator : Jose R Underwood MD Approver2 : Report Date : 11/03/2018 09:30:10 My Comment : Date of service: 11/03/2018 PROCEDURE: Left Knee Radiographs. HISTORY: Pain. COMPARISON: None. TECHNIQUE: 2 views obtained. FINDINGS: BONES: Normal. No fracture. JOINTS: Normal. No osteoarthritis. JOINT EFFUSION: None. OTHER FINDINGS: None. IMPRESSION: Normal radiographs of the left knee. Disagree with above, noted significant medial compartment joint space narrowing and sclerosis Patient Name / ID : ODALIS NOLAN / [id number] Exam Date : 11/03/2018 05:06:47 ( Approved ) Study Comment : Sex / Age : F / 37Y Creator : Jose R Underwood MD Dictator : Jose R Underwood MD [employer]ession[employer] : Transit Mixer Operator : Jose R Underwood MD Approver2 : Report Date : 11/03/2018 09:31:38 My Comment : Date of service: 11/03/2018 PROCEDURE: Pelvis and left hip HISTORY: pain COMPARISON: TECHNIQUE: Three views FINDINGS: There is a left hip prosthesis in satisfactory alignment. There is no fracture or loosening. A single screw can be seen through the right hip. There is mild joint space narrowing. The pelvis is intact IMPRESSION: No acute findings Assessment & Plan (1) Herniation of intervertebral disc between L5 and S1 Assessment and Plan: noted left foraminal nerve involvement noted weakness and decreased sensation on exam hip prosthesis is in good position and no clinical findings of hip pain or groin pain this is outside of scope of practice of Dr. Amador, recommend spine surgeon consultation recommend pain mgmt, VTE proph, PT/OT d/w Dr. Amador, agrees wtih above Status: Acute (2) Lumbar radiculopathy, acute Status: Acute
[2018-11-05 07:03] LABS: BASO # 0.04 K/mm3 (0.0-2.0); BASO % 0.4 % (0.0-3.0); EOS # 0.4 (0.0-0.7); EOS % 3.6 % (1.5-5.0); HEMOGLOBIN 11.4 g/dL (12.0-16.0); LYMPH # 4.2 (1.2-3.4); LYMPH % 38.5 % (22.0-35.0); MEAN CORPUSCULAR HEMOGLOBIN 25.5 pg (25.0-35.0); MEAN CORPUSCULAR HGB CONC 32.3 g/dl (31.0-37.0); MEAN PLATELET VOLUME 8.9 fl (7.0-11.0); MONO # 0.5 (0.1-0.6); MONO % 4.7 % (1.0-6.0); RBC 4.47 10^6/uL (3.5-6.1)
[2018-11-05 07:52] LABS: ALBUMIN 3.1 g/dL (3.0-4.8); ALT/SGPT 17 U/L (7-56); AST/SGOT 18 U/L (14-36); BLOOD UREA NITROGEN 14 mg/dL (7-21); CALCIUM 8.2 mg/dL (8.4-10.5); GFR NON-AFRICAN AMERICAN > 60
[2018-11-05] MEDS: Enoxaparin 40 mg Syringe SC SCH (09:11)
--- NOTE | 2018-11-05 09:25 | MRI ---
Date of service: 11/04/2018 PROCEDURE: MR LUMBAR SPINE WITHOUT CONTRAST HISTORY: Disc Bulge COMPARISON: None available. TECHNIQUE: Multiecho multiplanar sequences were performed through the lumbar spine without the use of intravenous contrast. FINDINGS: Normal lumbar lordosis. Vertebral body heights are preserved. Marrow signal unremarkable. Conus medullaris unremarkable at the level of T12 Paraspinal soft tissues are unremarkable. T12-L1: No disc herniation, spinal canal stenosis or neural foraminal narrowing. L1-2: No disc herniation, spinal canal stenosis or neural foraminal narrowing. L2-3: No disc herniation, spinal canal stenosis or neural foraminal narrowing. L3-4: No disc herniation, spinal canal stenosis or neural foraminal narrowing. L4-5: No disc herniation, spinal canal stenosis or neural foraminal narrowing. L5-S1: There is a broad-based left lateral disc herniation at L5-S1 extending into the neural foramen and also compressing the left S1 nerve root in the lateral recess. OTHER FINDINGS: The report concurs with the preliminary [facility] report IMPRESSION: There is a broad-based left lateral disc herniation at L5-S1 extending into the neural foramen and also compressing the left S1 nerve root in the lateral recess.
--- NOTE | 2018-11-05 10:59 | CP.PCM.PN ---
Subjective - Date & Time of Evaluation Date of Evaluation: 11/05/18 Time of Evaluation: 10:58 - Subjective Subjective: full consult dicatated HNP Left L5/S1 never had any cons tx suggest PT and pain mgmt for [facility] Objective - Vital Signs/Intake and Output Vital Signs (last 24 hours): Temp Pulse Resp BP Pulse Ox 97.7 F 54 L 16 167/76 H 99 11/05/18 10:20 11/05/18 10:20 11/05/18 10:20 11/05/18 10:20 11/05/18 10:20 Intake and Output: 11/05/18 11/05/18 06:59 18:59 Intake Total 240 Output Total 2 Balance 238 - Medications Medications: Current Medications Cyclobenzaprine HCl (Flexeril) 5 mg PO Q8H PRN PRN Reason: Pain, moderate (4-7) Last Admin: 11/05/18 05:43 Dose: 5 mg Enoxaparin Sodium (Lovenox) 40 mg SC DAILY FREYA; Protocol Last Admin: 11/05/18 09:11 Dose: 40 mg Ibuprofen (Motrin Tab) 400 mg PO Q6H PRN PRN Reason: Pain, moderate (4-7) Last Admin: 11/05/18 06:27 Dose: 400 mg Tramadol HCl (Ultram) 50 mg PO Q8 PRN PRN Reason: Pain, severe (8-10) Last Admin: 11/05/18 05:43 Dose: 50 mg - Labs Labs: 11/05/18 06:30 11/05/18 06:30
--- NOTE | 2018-11-05 12:45 | CP.PCM.PN ---
<Brant Cassidy - Last Filed: 11/05/18 12:42> Subjective - Date & Time of Evaluation Date of Evaluation: 11/05/18 Time of Evaluation: 07:00 - Subjective Subjective: Brant Cassidy DO, PGY-1 Hospitalist Progress Note for Dr. Jeff Avalos Patient was seen and examined at bedside this AM. She reports continued pain and difficulty with ambulation. She was able to ambulate with PT yesterday who are recommending patient go to [facility]. Objective - Vital Signs/Intake and Output Vital Signs (last 24 hours): Temp Pulse Resp BP Pulse Ox 97.7 F 54 L 16 167/76 H 99 11/05/18 10:20 11/05/18 10:20 11/05/18 10:20 11/05/18 10:20 11/05/18 10:20 Intake and Output: 11/05/18 11/05/18 06:59 18:59 Intake Total 240 Output Total 2 Balance 238 - Medications Medications: Current Medications Cyclobenzaprine HCl (Flexeril) 5 mg PO Q8H PRN PRN Reason: Pain, moderate (4-7) Last Admin: 11/05/18 05:43 Dose: 5 mg Enoxaparin Sodium (Lovenox) 40 mg SC DAILY FREYA; Protocol Last Admin: 11/05/18 09:11 Dose: 40 mg Ibuprofen (Motrin Tab) 400 mg PO Q6H PRN PRN Reason: Pain, moderate (4-7) Last Admin: 11/05/18 06:27 Dose: 400 mg Tramadol HCl (Ultram) 50 mg PO Q8 PRN PRN Reason: Pain, severe (8-10) Last Admin: 11/05/18 05:43 Dose: 50 mg - Labs Labs: 11/05/18 06:30 11/05/18 06:30 - Constitutional Appears: Non-toxic, No Acute Distress - Head Exam Head Exam: ATRAUMATIC, NORMOCEPHALIC - Eye Exam Eye Exam: EOMI, PERRL - ENT Exam ENT Exam: Mucous Membranes Moist - Neck Exam Neck Exam: Full ROM. absent: Lymphadenopathy, Thyromegaly - Respiratory Exam Respiratory Exam: Clear to Ausculation Bilateral, NORMAL BREATHING PATTERN. absent: Accessory Muscle Use, Rales, Rhonchi, Wheezes, Respiratory Distress - Cardiovascular Exam Cardiovascular Exam: REGULAR RHYTHM, RRR, +S1, +S2. 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 [address] lumbar spine completed yesterday which showed herniated disc at L5-S1. She is s/p first PT treatment today. MRI lumbar spine confirmed L5-S1 L sided disc herniation. Plan: L Hip Pain Suspect pain is most likely related to sciatica, given radiation to LLE, however patient denies any back pain MRI lumbar spine completed, confirmed L sided L5-S1 disc herniation Per neurosurgery recs, recommend conservative management with PT/pain management Pain management consult placed for possible epidural injection which will hopefully improve patient's mobility May continue flexeril 5 mg q8h, ibuprofen, and tramadol 50 q8h PRN pain Ortho, neurosurgery following, all recs appreciated Asthma Continues to have no SOB Continue Duo-neb PRN SOB HTN Has intermittent episodes of HTN but difficult to distinguish from primary HTN given patient's pain Recommend outpatient f/u and treatment as needed DVT/GI PPX: Lovenox/GI ppx not indicated Full Code HHD Monitor on med/surg Patient seen, examined with, and plan discussed with my attending Dr. Jeff Cassidy D.O. IM Resident PGY-1 Pager: [phone] <Radha Avalos - Last Filed: 11/06/18 09:13> Objective - Vital Signs/Intake and Output Vital Signs (last 24 hours): Temp Pulse Resp BP Pulse Ox 98.6 F 68 20 167/88 H 97 11/06/18 09:08 11/06/18 09:08 11/06/18 09:08 11/06/18 09:08 11/06/18 09:08 Intake and Output: 11/06/18 11/06/18 06:59 18:59 Intake Total 240 Balance 240 - Medications Medications: Current Medications Cyclobenzaprine HCl (Flexeril) 5 mg PO Q8H PRN PRN Reason: Pain, moderate (4-7) Last Admin: 11/06/18 01:32 Dose: 5 mg Enoxaparin Sodium (Lovenox) 40 mg SC DAILY FREYA; Protocol Last Admin: 11/05/18 09:11 Dose: 40 mg Gabapentin (Neurontin) 300 mg PO TID FREYA; Protocol Ibuprofen (Motrin Tab) 400 mg PO Q6H PRN PRN Reason: Pain, moderate (4-7) Last Admin: 11/06/18 06:20 Dose: 400 mg Tramadol HCl (Ultram) 50 mg PO Q8 PRN PRN Reason: Pain, severe (8-10) Last Admin: 11/06/18 05:05 Dose: 50 mg - Labs Labs: 11/06/18 06:35 11/06/18 06:35 Attending/Attestation - Attestation I have personally seen and examined this patient.: Yes I have fully participated in the care of the patient.: Yes I have reviewed all pertinent clinical information, including history, physical exam and plan: Yes Notes (Text): Patient seen and examined by me with resident at approximately 8:45AM on 11/05/18. Case including HPI, physical exam, and assessment and plan discussed with resident. Agree with above with following additions/corrections. Patient is a 37-year-old female with past medical history significant for likely bilateral SCFE, hypertension not any medications, and mild intermittent asthma that presented to the emergency room with intractable left lower extremity pain. Patient states she is still having the pain in her left leg. States it "tightens up." Pain medications are helping a little. Still with difficulty ambulating. Patient denies any chest pain or shortness of breath. No headaches or dizziness. No fevers or chills. No nausea, vomiting, or abdominal pain. No dysuria. Physical exam: General: Awake and alert lying in bed in no acute distress HEENT: Normocephalic, atraumatic. Extraocular muscles intact. Pupils equal and reactive, no scleral icterus. Oropharynx is pink and moist. No pharyngeal erythema or exudate appreciated. Neck is supple. Cardiovascular: Normal rhythm. Normal S1 and S2. No murmurs, rubs, or gallops appreciated Pulmonary: Normal respiratory effort. No rhonci, rales, or wheezing appreciated. Gastrointestinal: Soft, nondistended. Nontender. Positive bowel sounds all 4 quadrants. No guarding. Obese abdomen. Musculoskeletal: Moves all extremities. Positive decreased range of motion of entire left leg. Positive posterior leg tenderness. No lumbosacral spine tend erness. No edema appreciated. Central nervous system: AAO x3. CN2-12 grossly intact. Decreased sensation left lower extremity Dermatologic: Skin warm and dry. 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 1. Intractable left leg/hip pain. Left lower extremity radiculopathy. Left hip CT per radiologist showed negative study. Lumbar spine CT per radiologist showed L5-S1 with a large asymmetric disc bulge or broad based protrusion on the left extending into the neural foramen, there is also left paracentral osteophyte. MRI lumbar spine per radiologist showed broad-based left lateral disc herniation at L5-S1 extending into the neural foramen and also compressing the left S1 n erve root in the lateral recess. Orthopedics recommendations appreciated. Neurosurgery recommendations appreciated. Continue Flexeril and tramadol for pain. Pain management consulted. Left pelvis and hip x-ray per radiologist shows no acute findings. Left knee x-ray per radiologist shows normal radiographs of the left knee. Left lower extremity venous Doppler per radiologist negative for DVT. PT recommending subacute rehabilitation 2. History of hypertension. Not on any medications at home. Continue to monitor for now. 3. Mild intermittent asthma. No acute issues. Monitor for now. Case was discussed in detail with the patient regarding current diagnosis, study results, and treatment plan. All questions answered.
--- NOTE | 2018-11-05 19:36 | CON ---
DATE: 11/05/2018 HISTORY OF PRESENT ILLNESS: A 37-year-old female, reports that she has pain in the left hip going down the left leg all the way to the foot. She says that the pain worsened several days prior to admission. She said that she has had this for several months. She tried nonsteroidals without improvement and she was admitted to the hospital because of this. She has difficulty ambulating secondary to pain. She has a left hip replacement done in 2006. She has hypertension and asthma. Not on any medication. ALLERGIES: SHE HAS NO ALLERGIES. MEDICATIONS: She uses a p.r.n. albuterol inhaler. PAST MEDICAL HISTORY: As we saw from above is unremarkable. SOCIAL HISTORY: She lives with her parents. REVIEW OF SYSTEMS: A 12-point review of systems is negative going over with her in the medical record. PHYSICAL EXAMINATION NEUROLOGIC: Finds her awake, alert, and oriented. Cranial nerves are intact. Her motor exam is 5/5. She does have some straight leg raise that on the left is approximately 50 degrees. She has no lumbar tenderness. She has some very mild decreased sensation in the left L5-S1 partial dermatome. Reflexes are 1/4. I did not ambulate her. DIAGNOSTICS: MRI of the lumbar spine shows a left L5-S1 disc herniation. ASSESSMENT AND PLAN: She has not had any conservative treatment in the past. She has not had any physical therapy for this. She does not believe that her problem is coming from her back, but from her hip. I explained the pathology to her. I told her that prior to consideration of a discectomy I would strongly consider physical therapy and an epidural injection. I have contacted pain management to have them see her for an epidural. I would also suggest a course of physical therapy. If this fails then we can follow her and consider a microdiscectomy at left L5-S1. Luis Goode MD
[2018-11-06] MEDS ORDERED: Lidocaine 5% Patch TD STA (06:06)
[2018-11-06 07:01] LABS: BASO # 0.03 K/mm3 (0.0-2.0); BASO % 0.3 % (0.0-3.0); EOS # 0.5 (0.0-0.7); LYMPH # 2.9 (1.2-3.4); LYMPH % 29.5 % (22.0-35.0); MEAN CELL VOLUME 78.3 fl (80.0-105.0); MEAN CORPUSCULAR HEMOGLOBIN 25.8 pg (25.0-35.0); MEAN CORPUSCULAR HGB CONC 32.9 g/dl (31.0-37.0); MEAN PLATELET VOLUME 8.7 fl (7.0-11.0); MONO # 0.4 (0.1-0.6); MONO % 4.3 % (1.0-6.0); RBC 4.66 10^6/uL (3.5-6.1); RED CELL DISTRIBUTION WIDTH 15.9 % (11.5-14.5); WHITE BLOOD COUNT 9.7 10^3/uL (4.5-11.0)
--- NOTE | 2018-11-06 07:27 | CP.PCM.PN ---
Subjective - Date & Time of Evaluation Date of Evaluation: 11/06/18 Time of Evaluation: 07:00 - Subjective Subjective: Please see anesthesia note for plan Objective - Vital Signs/Intake and Output Vital Signs (last 24 hours): Temp Pulse Resp BP Pulse Ox 98.4 F 57 L 18 148/92 H 98 11/05/18 17:04 11/05/18 17:04 11/05/18 17:04 11/05/18 17:04 11/05/18 17:04 Intake and Output: 11/06/18 11/06/18 06:59 18:59 Intake Total 240 Balance 240 - Medications Medications: Current Medications Cyclobenzaprine HCl (Flexeril) 5 mg PO Q8H PRN PRN Reason: Pain, moderate (4-7) Last Admin: 11/06/18 01:32 Dose: 5 mg Enoxaparin Sodium (Lovenox) 40 mg SC DAILY FREYA; Protocol Last Admin: 11/05/18 09:11 Dose: 40 mg Ibuprofen (Motrin Tab) 400 mg PO Q6H PRN PRN Reason: Pain, moderate (4-7) Last Admin: 11/06/18 06:20 Dose: 400 mg Tramadol HCl (Ultram) 50 mg PO Q8 PRN PRN Reason: Pain, severe (8-10) Last Admin: 11/06/18 05:05 Dose: 50 mg - Labs Labs: 11/06/18 06:35 11/05/18 06:30
[2018-11-06 07:28] LABS: ALBUMIN 3.3 g/dL (3.0-4.8); ALT/SGPT 21 U/L (7-56); AST/SGOT 35 U/L (14-36); BLOOD UREA NITROGEN 23 mg/dL (7-21); CALCIUM 8.1 mg/dL (8.4-10.5); GFR NON-AFRICAN AMERICAN > 60
[2018-11-06 09:08] VITALS: BP 167/88; PULSE 68; RESP 20; TEMP 98.6; O2SAT 97
[2018-11-06] MEDS: Enoxaparin 40 mg Syringe SC SCH (09:31)
--- NOTE | 2018-11-06 16:52 | CP.PCM.DIS ---
Provider - Provider Date of Admission: 11/04/18 14:40 Attending physician: Radha Avalos DO Primary care physician: Anton Viramontes MD Consults: 11/03/18 09:05 Orthopedic Consult Routine Comment: Consulting Provider: My Rogers Consulting Physician: My Rogers Reason for Consult: L hip pain, s/p L hip arthroplasty 11/04/18 14:27 Physician Consult Routine Comment: Consulting Provider: Luis Goode Consulting Physician: Luis Goode Reason for Consult: L5-S1 herniated disc 11/05/18 10:32 Physician Consult Routine Comment: pain management consult Consulting Provider: Sam Allred Consulting Physician: Sam Allred Reason for Consult: pain management, poss epidural inj Time Spent in preparation of Discharge (in minutes): 40 Diagnosis - Discharge Diagnosis (1) Herniation of intervertebral disc between L5 and S1 Status: Acute (2) Hip pain, left Status: Acute (3) Inability to ambulate due to hip Status: Resolved (4) Lumbar radiculopathy, acute Status: Acute Hospital Course - Lab Results Lab Results: Most Recent Lab Values WBC 9.7 10^3/uL (4.5-11.0) 11/06/18 06:35 RBC 4.66 10^6/uL (3.5-6.1) 11/06/18 06:35 Hgb 12.0 g/dL (12.0-16.0) 11/06/18 06:35 Hct 36.5 % (36.0-48.0) 11/06/18 06:35 MCV 78.3 fl (80.0-105.0) L 11/06/18 06:35 MCH 25.8 pg (25.0-35.0) 11/06/18 06:35 MCHC 32.9 g/dl (31.0-37.0) 11/06/18 06:35 RDW 15.9 % (11.5-14.5) H 11/06/18 06:35 Plt Count 278 10^3/uL (120.0-450.0) 11/06/18 06:35 MPV 8.7 fl (7.0-11.0) 11/06/18 06:35 Neut % (Auto) 60.9 % (50.0-68.0) 11/06/18 06:35 Lymph % (Auto) 29.5 % (22.0-35.0) 11/06/18 06:35 [place] % (Auto) 4.3 % (1.0-6.0) 11/06/18 06:35 Eos % (Auto) 5.0 % (1.5-5.0) 11/06/18 06:35 Baso % (Auto) 0.3 % (0.0-3.0) 11/06/18 06:35 Lymph # (Auto) 2.9 (1.2-3.4) 11/06/18 06:35 [place] # (Auto) 0.4 (0.1-0.6) 11/06/18 06:35 Eos # (Auto) 0.5 (0.0-0.7) 11/06/18 06:35 Baso # (Auto) 0.03 K/mm3 (0.0-2.0) 11/06/18 06:35 Absolute Neuts (auto) 5.88 (1.4-6.5) 11/06/18 06:35 Sodium 139 mmol/L (132-148) 11/06/18 06:35 Potassium 4.2 mmol/L (3.6-5.0) 11/06/18 06:35 Chloride 102 mmol/L (98-107) 11/06/18 06:35 Carbon Dioxide 31 mmol/L (21-33) 11/06/18 06:35 Anion Gap 10 (10-20) 11/06/18 06:35 BUN 23 mg/dL (7-21) H 11/06/18 06:35 Creatinine 0.9 mg/dl (0.7-1.2) 11/06/18 06:35 Est GFR ( Amer) > 60 11/06/18 06:35 Est GFR (Non-Af Amer) > 60 11/06/18 06:35 Random Glucose 110 mg/dL (70-110) 11/06/18 06:35 Calcium 8.1 mg/dL (8.4-10.5) L 11/06/18 06:35 Phosphorus 3.9 mg/dL (2.5-4.5) 11/04/18 06:10 Magnesium 2.0 mg/dL (1.7-2.2) 11/04/18 06:10 Total Bilirubin 0.1 mg/dL (0.2-1.3) L 11/06/18 06:35 AST 35 U/L (14-36) 11/06/18 06:35 ALT 21 U/L (7-56) 11/06/18 06:35 Alkaline Phosphatase 69 U/L (38-126) 11/06/18 06:35 Total Protein 6.6 g/dL (5.8-8.3) 11/06/18 06:35 Albumin 3.3 g/dL (3.0-4.8) 11/06/18 06:35 Globulin 3.3 gm/dL 11/06/18 06:35 Albumin/Globulin Ratio 1.0 (1.1-1.8) L 11/06/18 06:35 Beta HCG, Quant < 2.39 mIU/mL (0-6.15) 11/03/18 01:22 - Hospital Course Hospital Course: Brant Cassidy DO, PGY-1 Hospitalist Discharge Summary for Dr. 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 On initial examination, it was suspected that patient had radiculopathy, given distribution and description of pain. She was subsequently admitted for management of radiculopathy and inability to ambulate 2/2 pain. Hospitalization course: Patient underwent CT lumbar spine and was found to have L5-S1 L-sided asymmetric disc bulge which was also confirmed by MRI. She was evaluated by ortho who suggested neurosurgical and pain management consultations. Neurosurgery recommended conservative management and would consider surgery only after these therapies have been exhausted. Pain management evaluated patient, did not recommend epidural at the time and was instructed to f/u in [facility] outpatient. She continued to work with PT and she was able to ambulate. PT recommended patient undergo outpatient PT and script was given to SW. Small supply of prescriptions were given with appropriate outpatient f/u instructions as below. Discharge plan was discussed in detail with patient. All questions were answered. Patient seen, examined, and discharge plan discussed with my attending Dr. Jeff Cassidy D.O. IM Resident PGY-1 Discharge Exam - Head Exam Head Exam: ATRAUMATIC, NORMOCEPHALIC - Eye Exam Eye Exam: EOMI, PERRL - ENT Exam ENT Exam: Mucous Membranes Moist - Neck Exam Neck exam: Full Rom, Normal Inspection - Respiratory Exam Respiratory Exam: Clear to PA & Lateral, NORMAL BREATHING PATTERN, UNREMARKABLE. absent: Accessory Muscle Use, Rales, Rhonchi, Wheezes, Respiratory Distress - Cardiovascular Exam Cardiovascular Exam: REGULAR RHYTHM, RRR, +S1, +S2. absent: Diastolic murmur, Gallop, Rubs, Systolic Murmur - GI/Abdominal Exam GI & Abdominal Exam: Normal Bowel Sounds, Soft, Unremarkable. absent: Tenderness - Extremities Exam Extremities exam: full ROM, normal inspection - Back Exam Back exam: NORMAL INSPECTION - Neurological Exam Neurological exam: Alert, Oriented x3 - Psychiatric Exam Psychiatric exam: Normal Affect, Normal Mood - Skin Skin Exam: Dry, Intact, Warm Discharge Plan - Discharge Medications Prescriptions: Cyclobenzaprine [Flexeril] 5 mg PO Q8H PRN #15 tab PRN Reason: Muscle Spasm Gabapentin 300 mg PO TID #15 capsule Lidocaine 5% [Lidoderm] 1 ea TD DAILY #14 patch traMADol [Ultram] 50 mg PO Q8 PRN #9 tab PRN Reason: Pain, Severe (8-10) - Follow Up Plan Condition: STABLE Disposition: HOME/ ROUTINE Instructions: Herniated Disc, Herniated Disc (DC), Hip Pain (DC), In tervertebral Discectomy (DC), Going Up and Down Curbs or Stairs With a Walker or Crutches, Herniated Disc Exercises Additional Instructions: Please follow up with your primary medical doctor within 3-5 days of discharge. Please follow up with the pain management clinic at [facility]. The phone number is [phone] ext.[phone]. Please follow up with the neurosurgeon, Dr. Goode, within 1 week of discharge. His contact information has been included in your paperwork. Please continue to participate in physical therapy, as this is the main treatment for your herniated disc. We have given you prescriptions for your pain: Flexeril (a muscle relaxer) which you may take every 8 hours as needed. This medicine may make you drowsy. Do not drive or operate heavy machinery while taking this medication. Gabapentin 300 mg, please take this three times a day. Lidoderm patch. You may put this on for 12 hours at a time (and then 12 hours off) as needed. Tramadol as needed for severe pain. Do not drive or operate heavy machinery while taking this medication. You may continue to take over the counter ibuprofen or naproxen every 6 hours as needed. But please limit these medicines as much as possible and take them with food. If your symptoms worsen, please return to nearest emergency department. Referrals: Anton Viramontes MD [Primary Care Provider] - Luis Goode MD [Staff Provider] - Shaquille Golden MD [Staff Provider] -
[2018-11-07] MEDS ORDERED: Lidocaine 5% Patch TD SCH (10:00)
== END 2018-11-06 17:12 | disposition home or self-care (01) | DRG 243 ==
LOC: ED 23:47 → ERH 11-03 05:49 → 3RSO 11-03 06:25 → INTOOBSV 11-03 14:40 → OBSVTOIN 11-03 14:40
PROVIDERS: ADMIT Hospitalist; ATTEND Hospitalist
DX: M51.17 Intervertebral disc disorders with radiculopathy, lumbosacral region (principal); M25.78 Osteophyte, vertebrae; M25.552 Pain in left hip; I10 Essential (primary) hypertension; J45.20 Mild intermittent asthma, uncomplicated; Z96.642 Presence of left artificial hip joint; Z82.49 Family history of ischemic heart disease and other diseases of the circulatory system